=== PATIENT | female | born 1960 | race Caucasian/White ===

== ENCOUNTER 2017-08-18 00:34 | Day surgery (SDC) | payer OTHER ==
[~2017-08-18] VITALS: Ht 167.6 cm; Wt 84.8 kg
[~2017-08-18 00:34] MED LIST: ACE325 PO; CA C1TAB85 PO; CHOL200021 PO; CYCL10TA29 PO; DIPH-740 PO; DOC100 PO; DOCO1CAP17 PO; ESTR50GE2 TP; FES4PT PO; GINK120C PO; HYDR12.561 PO; LISI-362 PO; LISI20TA29 PO; METR55GE TP; MINE5OIN; MULT1CAP59 PO; MULT1TAB54 PO; OMEG-11 PO; OXYC-869 PO; PANT40TA65 PO; PER PO; PHENA200 PO; PRA20 PO; PSEU60TA80 PO; ROS10 PO; ROSU40TA18 PO; TETR15DR9 OP; [UNRECOGNIZED DRUG - OTHER] OP; [UNRECOGNIZED DRUG - OTHER] OP; immodium PO
[2017-08-18] MEDS ORDERED: LIDOCAINE MPF 1% 5 ML VIAL ONE (06:48)
[2017-08-18] MEDS ORDERED: PROPOFOL EMUL(*) 10MG/ML 20 ML 60 ML ONE (06:48)
--- NOTE | 2017-08-18 07:28 | Short(Outpt) Discharge Summary ---
Discharge Summary Reason for Hosp/Final Diag: (1) Rectal bleeding Hospital Course & Plan: sigmoid diverticulosis Departure Discharge to: Home Discharge Instructions Home Meds Active Scripts Oxycodone Hcl/Acetaminophen (PERCOCET 7.5-325 MG TABLET) 1 Each Tablet, 1 EACH PO Q4-6H, #20 Prov:ROXANN CAZARES DO 06/13/15 Reported Medications Cyclobenzaprine Hcl (CYCLOBENZAPRINE HCL) 10 Mg Tablet, 0.5 TAB PO HS Y for MUSCLE SPASMS, #9 TAB 08/16/17 [Xiaxue Eye Gtts] No Conflict Check, 1 DROP OP BID 08/16/17 [Paveo Eye Gtts] No Conflict Check, 1 DROP OP BID 08/16/17 Lisinopril (LISINOPRIL) 20 Mg Tablet, 20 MG PO QDAY, TAB 08/16/17 Rosuvastatin Calcium (CRESTOR) 40 Mg Tablet, 40 MG PO QDAY 08/16/17 Mineral Oil/Petrolatum,White (Retaine Pm Eye Ointment) 5 Gm Oint...g. 06/13/15 Metronidazole (METROGEL) 55 Gm Gel.w.pump, 1 ULISES TP DAILY 03/04/15 Cholecalciferol (Vitamin D3) (VITAMIN D) 2,000 Unit Capsule, 2000 UNIT PO BID, CAPSULE 03/04/15 Docosahexanoic Acid/Epa (FISH OIL CONCENTRATE SOFTGEL) 1 Each Capsule, 1 EACH PO BID, CAPSULE 03/04/15 Multivitamin (MULTI-VITAMIN DAILY) 1 Each Tablet, 1 EACH PO DAILY 03/04/15 Discontinued Reported Medications Lisinopril (LISINOPRIL) 10 Mg Tablet, 10 MG PO QDAY 06/13/15 Estradiol (ESTROGEL) 50 Gm Gel..extension service specialist in charge, 1 ULISES TP TWICE WEEKLY 03/04/15 Ginkgo Biloba Extract (GINKGO BILOBA) 120 Mg Capsule, PO DAILY Y for SEE COMMENT , CAPSULE 03/04/15 Rosuvastatin Calcium (CRESTOR) 10 Mg Tab, PO QDAY, TAB 03/04/15 Discontinued Scripts Cyclobenzaprine Hcl (CYCLOBENZAPRINE HCL) 10 Mg Tablet, 10 MG PO TID, #20 TAB TAKE 1 TABLET BY MOUTH THREE TIMES A DAY Prov:ROXANN CAZARES DO 06/13/15 Diet: High Fiber Activity: As Tolerated GOPI JAMES MD Aug 18, 2017 07:28
--- NOTE | 2017-08-18 07:28 | Post Operative Progress Note ---
Post Operative Progress Note Date: Aug 18, 2017 Time: 09:19 Surgeon: марина Anesthesia: dr mendoza Pre-Op Diagnosis: rectal bleeding Post-Op Diagnosis: sigmoid diverticulosis Procedure(s): colonoscopy GOPI JAMES MD Aug 18, 2017 07:28
[2017-08-18 07:45] VITALS: BP 132/103
[2017-08-18] MEDS ORDERED: MIDAZOLAM 2 MG/2 ML VIAL IVP ONE (08:00)
[2017-08-18] MEDS ORDERED: LIDOCAINE/SOD BICARB 8.4% SYR ID ONE (08:00)
[2017-08-18] MEDS ORDERED: NORMOSOL R SOLN(*) 1000 ML BAG 1,000 ML IV PRN (08:00)
[2017-08-18 09:20] VITALS: BP 114/80
[2017-08-18 09:30] VITALS: BP 104/84
[2017-08-18 10:07] VITALS: BP_SYST 122; BP_SYST 126; BP_DIAS 80; BP_DIAS 81
--- NOTE | 2017-08-18 15:51 | OPERATIVE REPORT 1 ---
EVENT DATE: August 18, 2017 SURGEON: Abilio Marin MD ANESTHESIOLOGIST: Edgardo Rowan MD ANESTHESIA: Sedation. PREOPERATIVE DIAGNOSIS Rectal bleeding. POSTOPERATIVE DIAGNOSIS Sigmoid diverticulosis. PROCEDURE PERFORMED Colonoscopy. DESCRIPTION OF PROCEDURE The patient was placed in the left lateral decubitus position and given intravenous sedation. Perianal examination was unremarkable. No prolapsing, thrombosed hemorrhoids. No fissures. No fistulas. A flexible colonoscope was inserted and advanced to the cecum. She had a good bowel prep. She had some liquid stool. We were able to suction this out and get a good look. No abnormalities were noted in the cecum, right colon, transverse, or descending colon. Care was taken to look behind the haustral folds. In the sigmoid colon , she had multiple diverticula. No evidence of diverticulitis. No blood was noted. The rectum was normal. The scope was retroflexed, and that appeared to be normal. [facility]
== END 2017-08-18 10:25 | disposition home or self-care (01) ==
LOC: OR 00:34
PROVIDERS: ATTEND Surgery
DX: K57.30 Diverticulosis of large intestine without perforation or abscess without bleeding (principal)
CPT/HCPCS: 00811; 45378; J2001; J2704

== ENCOUNTER 2018-04-19 07:11 | Emergency (ER) | payer OTHER ==
[2018-04-19] MEDS ORDERED: KETOROLAC 60 MG/2 ML VIAL IM ONE (07:35)
[2018-04-19] MEDS ORDERED: diphenhydrAMINE 25 MG CAP PO ONE (07:35)
[2018-04-19] MEDS ORDERED: PROCHLORPERAZINE MAL 5 MG TAB PO ONE (07:35)
--- NOTE | 2018-04-19 07:40 | ER Report ---
History and Physical Time Seen By MD: 07:25 HPI/ROS CHIEF COMPLAINT: Headache HISTORY OF PRESENT ILLNESS: Patient is a 58-year-old female history of chronic conditions undiagnosed potential MS lupus chronic neck discomfort secondary to herniated disc with with radiculopathic changes in the left upper extremity chronic as I lower back joint issues comes in today with 4 days of a headache it happened initiated about 4 days ago on the back of her neck up to the top of her head describes his have a tension feeling with some sinus pressure patient states that the next couple days he did get below bit better on its own by taking her Flexeril her tramadol and her ibuprofen subsequently last night it got worse same position and the back of the head feels like squeezing or a tight sensation also describing some sinus pressure and tenderness around her sinus area no vision changes no hearing changes no focal neurological deficit no nuchal rigidity no fever chills or sweats no meningeal signs noted. Patient denies any nausea vomiting diarrhea fever or chills. Patient states this is not the worst headache of her life and she has had headaches in the past but not recently. Patient has no additional complaints this time. REVIEW OF SYSTEMS: Respiratory: No cough, no dyspnea. Cardiovascular: No chest pain, no palpitations. Gastrointestinal: No vomiting, no abdominal pain. Musculoskeletal: chronic back pain. Remainder of the 14 system rev: Yes Allergies: Coded Allergies: Sulfa (Sulfonamide Antibiotics) (Verified Allergy, Mild, 12/15/11) Tetanus Vaccines and Toxoid (Verified Allergy, Mild, 12/15/11) Uncoded Allergies: ERYTHROMYCIN (Allergy, Unknown, 03/05/15) Home Meds Reported Medications Tramadol Hcl (TRAMADOL HCL) 50 Mg Tablet, 50-100 MG PO Q4-6H, TAB 04/19/18 Olopatadine HCl (Pazeo) 2.5 Ml Drops, 1 DROP OU DAILY 04/19/18 Rosuvastatin Calcium (CRESTOR) 20 Mg Tablet, 20 MG PO QDAY 04/19/18 [areds 2] No Conflict Check, 2 TAB PO DAILY 04/19/18 Lisinopril (LISINOPRIL) 40 Mg Tablet, 40 MG PO QDAY, TAB 04/19/18 Cyclobenzaprine Hcl (CYCLOBENZAPRINE HCL) 10 Mg Tablet, 1 TAB PO HS PRN for MUSCLE SPASMS, #9 TAB 08/16/17 Metronidazole (METROGEL) 55 Gm Gel.w.pump, 1 ULISES TP DAILY 03/04/15 Cholecalciferol (Vitamin D3) (VITAMIN D) 2,000 Unit Capsule, 2000 UNIT PO BID, CAPSULE 03/04/15 Docosahexanoic Acid/Epa (FISH OIL CONCENTRATE SOFTGEL) 1 Each Capsule, 1 EACH PO BID, CAPSULE 03/04/15 Discontinued Reported Medications [Xiaxue Eye Gtts] No Conflict Check, 1 DROP OP BID 08/16/17 [Paveo Eye Gtts] No Conflict Check, 1 DROP OP BID 08/16/17 Lisinopril (LISINOPRIL) 20 Mg Tablet, 20 MG PO QDAY, TAB 08/16/17 Rosuvastatin Calcium (CRESTOR) 40 Mg Tablet, 40 MG PO QDAY 08/16/17 Mineral Oil/Petrolatum,White (Retaine Pm Eye Ointment) 5 Gm Oint...g. 06/13/15 Multivitamin (MULTI-VITAMIN DAILY) 1 Each Tablet, 1 EACH PO DAILY 03/04/15 Discontinued Scripts Oxycodone Hcl/Acetaminophen (PERCOCET 7.5-325 MG TABLET) 1 Each Tablet, 1 EACH PO Q4-6H, #20 Prov:ROXANN CAZARES DO 06/13/15 Reviewed Nurses Notes: Yes Old Medical Records Reviewed: Yes Hx Smoking: No Smoking Status: Never Smoker Hx Substance Use Disorder: No Hx Alcohol Use: Yes Constitutional Vital Sign - Last 24 Hours 04/19/18 07:17 Temp 99.2 Pulse 98 Resp 16 B/P (MAP) 171/95 Pulse Ox 94 O2 Delivery Room Air Physical Exam General Appearance: The patient is alert, has no immediate need for airway protection and no current signs of toxicity. [ ] Eyes: Pupils equal and round no injection. No pain with extraocular motor movement no meningeal signs Respiratory: Chest is non tender, lungs are clear to auscultation. Cardiac: regular rate and rhythm [ ] Gastrointestinal: Abdomen is soft and non tender, no masses, bowel sounds normal. Musculoskeletal: Normal [Neck is supple and non tender. Full range of motion without any meningeal signs full range of motion no radiculopathic numbness Extremities have full range of motion and are non tender. Skin: Facial rash chronic Neurologic no focal deficits cranial nerves II through XII intact Facial examination palpable tenderness percussive in the maxillary sinus region some of the superior sinus left greater than right DIFFERENTIAL DIAGNOSIS: After history and physical exam differential diagnosis was considered for sinusitis meningitis subarachnoid hemorrhage Medical Decision Making ED Course/Re-evaluation ED Course ED clinical course medical decision-making [age] female came in with sinus pressure and tenderness and headache has been intermittent for last couple of days CT scan of the head shows white and juarez matter changes consistent with probable MS or other inflammatory processes no sign of blood mass tumor lesion sinuses were negative most likely this is just a viral sinus infection which may precipitate a headache no nuchal rigidity no meningeal signs no obvious signs of subarachnoid this is not the worst headache of her life should not cause a thunderclap she has no neck stiffness no nuchal rigidity no focal neurological deficits noted. Patient to get medication does feel better I will not prescribe narcotics we'll advise her to take [id number] and follow-up with a neurologist as directed and of primary care Decision to Disposition Date: Apr 19, 2018 Decision to Disposition Time: 09:10 Depart Departure Latest Vital Signs Vital Signs Date Time Temp Pulse Resp B/P (MAP) Pulse Ox O2 Delivery O2 Flow Rate FiO2 04/19/18 07:17 99.2 98 16 171/95 94 Room Air Impression: Primary Impression: Headache Condition: Stable Disposition: HOME OR SELF-CARE Referrals: KORIN RENDON (PCP) Patient Instructions: Acute Headache (DC) ABIGAIL HERNANDEZ MD Apr 19, 2018 07:40
[2018-04-19] MEDS ORDERED: LISI-374 PO (07:44)
[2018-04-19] MEDS ORDERED: TRAM-420 PO (07:44)
[2018-04-19] MEDS ORDERED: areds 2 PO (07:44)
[2018-04-19] MEDS ORDERED: OLOP2.5D4 OU (07:44)
[2018-04-19] MEDS ORDERED: ROSU20TA23 PO (07:44)
[2018-04-19 09:13] VITALS: BP 131/80
--- NOTE | 2018-04-19 09:13 | RADIOLOGY IMAGING REPORT ---
FACILITY: [facility] - [place] PATIENT NAME: Salma Mayo : 1960 MR: [id number] V: [id number] EXAM DATE: ORDERING PHYSICIAN: ABIGAIL HERNANDEZ TECHNOLOGIST: Location: [facility] Patient: Salma Mayo : 1960 Visit/Account:[id number] Date of Sevice: 04/19/[address] scan without contrast, and paranasal sinus CT scan without contrast. HISTORY: Headache, dizziness. COMPARISON: Brain MRI scan 05/31/2012. 3 mm thick and 0.[address] images were obtained of the brain. [address] images were obtained of the paranasal sinuses. Coronal and sagittal computer reconstructions were obtained of the brain and paranasal sinuses. No intravenous contrast. One of the following dose optimization techniques was utilized in the performance of this exam: Automated exposure control; adjustment of t he mA and/or kV according to the patient's size; or use of an iterative reconstruction technique. S pecific details can be referenced in the facility's radiology CT exam operational policy. FINDINGS: Cerebral, cerebellar, and brainstem volumes are normal for age. The ventricular system is normal in s ize and midline in position. No mass, hemorrhage, or acute stroke are identified. No abnormal extra a xial fluid collections. The calvarium is intact. Patchy areas of decreased attenuation are present i n the centrum semiovale bilaterally. A small calcification is present along the lateral aspect of th e posterior portion of the left lateral ventricular body. The base of the brain is slightly obscured by bony artifacts. Antral windows are present in the maxillary sinuses bilaterally. The frontal, ethmoid, maxillary, an d sphenoid sinuses are otherwise unremarkable bilaterally. No mucosal thickening or air-fluid levels . The middle nasal turbinates are partially aerated bilaterally. The mastoids and middle ears are a erated bilaterally. IMPRESSION: Bilateral cerebral white matter disease suspicious for multiple sclerosis or chronic ischemic [place]. Negative for acute intracranial hemorrhage. Bilateral maxillary sinus antral windows. Bilateral conchae bullosa. Otherwise negative paranasal sinuses. Results were discussed with ABIGAIL HERNANDEZ at 04/19/2018 9:08 AM. Report Dictated By: Erasmo Salcedo MD at 04/19/2018 8:50 AM Report E-Signed By: Erasmo Salcedo MD at 04/19/2018 9:09 AM NICN:BRADLEY
--- NOTE | 2018-04-19 09:13 | RADIOLOGY IMAGING REPORT ---
FACILITY: [facility] - [place] PATIENT NAME: Salma Mayo : 1960 MR: [id number] V: [id number] EXAM DATE: ORDERING PHYSICIAN: ABIGAIL HERNANDEZ TECHNOLOGIST: Location: [facility] [place] Patient: Salma Mayo : 1960 Visit/Account:[id number] Date of Sevice: 04/19/[address] scan without contrast, and paranasal sinus CT scan without contrast. HISTORY: Headache, dizziness. COMPARISON: Brain MRI scan 05/31/2012. 3 mm thick and 0.[address] images were obtained of the brain. [address] images were obtained of the paranasal sinuses. Coronal and sagittal computer reconstructions were obtained of the brain and paranasal sinuses. No intravenous contrast. One of the following dose optimization techniques was utilized in the performance of this exam: Automated exposure control; adjustment of t he mA and/or kV according to the patient's size; or use of an iterative reconstruction technique. S pecific details can be referenced in the facility's radiology CT exam operational policy. FINDINGS: Cerebral, cerebellar, and brainstem volumes are normal for age. The ventricular system is normal in s ize and midline in position. No mass, hemorrhage, or acute stroke are identified. No abnormal extra a xial fluid collections. The calvarium is intact. Patchy areas of decreased attenuation are present i n the centrum semiovale bilaterally. A small calcification is present along the lateral aspect of th e posterior portion of the left lateral ventricular body. The base of the brain is slightly obscured by bony artifacts. Antral windows are present in the maxillary sinuses bilaterally. The frontal, ethmoid, maxillary, an d sphenoid sinuses are otherwise unremarkable bilaterally. No mucosal thickening or air-fluid levels . The middle nasal turbinates are partially aerated bilaterally. The mastoids and middle ears are a erated bilaterally. IMPRESSION: Bilateral cerebral white matter disease suspicious for multiple sclerosis or chronic ischemic [place]. Negative for acute intracranial hemorrhage. Bilateral maxillary sinus antral windows. Bilateral conchae bullosa. Otherwise negative paranasal sinuses. Results were discussed with ABIGAIL HERNANDEZ at 04/19/2018 9:08 AM. Report Dictated By: Erasmo Salcedo MD at 04/19/2018 8:50 AM Report E-Signed By: Erasmo Salcedo MD at 04/19/2018 9:09 AM NICN:BRADLEY
== END 2018-04-19 09:21 | disposition home or self-care (01) ==
LOC: ER 07:36
DX: R51 Headache (principal)
CPT/HCPCS: 70450; 70486; 96372; 99284; J1885; Q0163; Q0164; 99283

== ENCOUNTER 2018-04-21 07:39 | Emergency (ER) | payer OTHER ==
[~2018-04-21 07:39] MED LIST changes: +LISI-374 PO; +OLOP2.5D4 OU; +ROSU20TA23 PO; +TRAM-420 PO; +areds 2 PO
--- NOTE | 2018-04-21 07:41 | ER Report ---
History and Physical Time Seen By MD: 07:41 HPI/ROS CHIEF COMPLAINT: Left-sided facial weakness, pressure to the left ear HISTORY OF PRESENT ILLNESS: She is a 58-year-old female who presents emergency department with complaint of left-sided facial numbness. She was seen 2 days ago in the emergency department for an unremitting headache that did improve with treatment in the emergency department but then reoccurred later that evening. Patient was later seen in urgent care and was found to have fever was diagnosed clinically with influenza and started on Tamiflu. Patient is on day 4 of 5 Tamiflu today. The headache is still persistent but does respond to prescribe pain medication. As morning the patient woke with left-sided the face drooping. Difficulty holding it in water and hard to shut her left eye. Patient states that the fever has resolved. 1st no new complaints at this time. REVIEW OF SYSTEMS: Respiratory: No cough, no dyspnea. Cardiovascular: No chest pain, no palpitations. Gastrointestinal: No vomiting, no abdominal pain. Musculoskeletal: No back pain. Allergies: Coded Allergies: Sulfa (Sulfonamide Antibiotics) (Verified Allergy, Mild, 12/15/11) Tetanus Vaccines and Toxoid (Verified Allergy, Mild, 12/15/11) Uncoded Allergies: ERYTHROMYCIN (Allergy, Unknown, 03/05/15) Home Meds Active Scripts Lanolin/Min Oil/Petrolat,Wht (AKWA TEARS OINTMENT) 3.5 Gm Oint...g., 3.5 GM OS QHS, #3.5 GM 0 Refills Apply at bedtime and tape eye shut until symptoms of Rowan's Palsy resolves Prov:CHLOE FISHER MD 04/21/18 Prednisone (PREDNISONE) 20 Mg Tablet, 60 MG PO QDAY, #15 TAB 0 Refills Prov:CHLOE FISHER MD 04/21/18 Reported Medications Tramadol Hcl (TRAMADOL HCL) 50 Mg Tablet, 50-100 MG PO Q4-6H, TAB 04/19/18 Olopatadine HCl (Pazeo) 2.5 Ml Drops, 1 DROP OU DAILY 04/19/18 Rosuvastatin Calcium (CRESTOR) 20 Mg Tablet, 20 MG PO QDAY 04/19/18 [areds 2] No Conflict Check, 2 TAB PO DAILY 04/19/18 Lisinopril (LISINOPRIL) 40 Mg Tablet, 40 MG PO QDAY, TAB 04/19/18 Cyclobenzaprine Hcl (CYCLOBENZAPRINE HCL) 10 Mg Tablet, 1 TAB PO HS PRN for MUSCLE SPASMS, #9 TAB 08/16/17 Metronidazole (METROGEL) 55 Gm Gel.w.pump, 1 ULISES TP DAILY 03/04/15 Cholecalciferol (Vitamin D3) (VITAMIN D) 2,000 Unit Capsule, 2000 UNIT PO BID, CAPSULE 03/04/15 Docosahexanoic Acid/Epa (FISH OIL CONCENTRATE SOFTGEL) 1 Each Capsule, 1 EACH PO BID, CAPSULE 03/04/15 Discontinued Reported Medications [Xiaxue Eye Gtts] No Conflict Check, 1 DROP OP BID 08/16/17 [Paveo Eye Gtts] No Conflict Check, 1 DROP OP BID 08/16/17 Lisinopril (LISINOPRIL) 20 Mg Tablet, 20 MG PO QDAY, TAB 08/16/17 Rosuvastatin Calcium (CRESTOR) 40 Mg Tablet, 40 MG PO QDAY 08/16/17 Mineral Oil/Petrolatum,White (Retaine Pm Eye Ointment) 5 Gm Oint...g. 06/13/15 Multivitamin (MULTI-VITAMIN DAILY) 1 Each Tablet, 1 EACH PO DAILY 03/04/15 Discontinued Scripts Oxycodone Hcl/Acetaminophen (PERCOCET 7.5-325 MG TABLET) 1 Each Tablet, 1 EACH PO Q4-6H, #20 Prov:ROXANN CAZARES 06/13/15 Past Medical/Surgical History Abnormal white matter demyelination on CT scans and prior MRIs. Patient has had an MS workup ordered we been negative. Patient is followed with Dr. Miner neurology. She has no definitive diagnosis. Patient was seen 2 days ago for headache which is still present. She was followed up later that evening in urgent care and was diagnosed clinically with influenza and started empirically on Tamiflu which she will be taking daily for of 5. Hx Smoking: No Smoking Status: Never Smoker Hx Substance Use Disorder: No Hx Alcohol Use: Yes Constitutional Vital Sign - Last 24 Hours 04/21/18 07:45 Temp 97.8 Pulse 99 Resp 20 B/P (MAP) 148/86 Pulse Ox 91 O2 Delivery Room Air Physical Exam General/Constitutional: Patient is awake, alert, nontoxic and in no acute respiratory distress. Head: Normocephalic and atraumatic. Eyes: Conjunctival clear, Pupils are equal and reactive to light. Extraocular muscles are intact and symmetrical. Sclera are clear and anicteric. Ears:External canals are clear. Tympanic membranes are clear with normal landmarks and light reflex. Nares: No rhinorrhea or bleeding. Turbinates are pink and moist. Oropharyngeal: Mucous membranes are moist. There is no pharyngeal erythema or exudate. There are no palatal petechiae. Uvula is midline and symmetrical. Neck: Supple, no adenopathy. Cardiovascular: Heart is regular rate and rhythm without audible murmurs, rubs or gallops. Pulmonary: Lungs are clear to auscultation bilaterally. There are no wheezes, rales, or rhonchi. Chest rise is symmetrical Abdomen: Soft, nontender, no guarding or peritoneal signs. Extremities: No gross deformities, No peripheral cyanosis. Able to move all 4 extremities. Neuro: Alert and oriented X3, patient has a complete left peripheral 7th nerve palsy. She has facial droop that includes the eyebrow. She has difficulty closing the left eyelid. And unable to hold air in her mouth without it leaking. Skin: No rashes, skin is warm dry and well perfused. Medical Decision Making ED Course/Re-evaluation ED Course 04/21/2018 8:28:[address] physical exam consistent with acute left-sided Rowan's palsy. We'll have patient start on prednisone 60 mg for the next 5 days as well as starting a IV V at nighttime with instructions to tape eye shut at night. Patient is instructed to follow-up with her primary care provider in a week to follow-up for the Rowan's palsy. Decision to Disposition Date: Apr 21, 2018 Decision to Disposition Time: 08:29 Depart Departure Latest Vital Signs Vital Signs Date Time Temp Pulse Resp B/P (MAP) Pulse Ox O2 Delivery O2 Flow Rate FiO2 04/21/18 07:45 97.8 99 20 148/86 91 Room Air Impression: Primary Impression: Rowan's palsy Condition: Condition Unchanged Disposition: HOME OR SELF-CARE Referrals: KORIN RENDON (PCP) 1 Week for reevaluation of bells palsy New Scripts Lanolin/Min Oil/Petrolat,Wht (AKWA TEARS OINTMENT) 3.5 Gm Oint...g. 3.5 GM OS QHS, #3.5 GM 0 Refills Apply at bedtime and tape eye shut until symptoms of Rowan's Palsy resolves Prov: CHLOE FISHER MD 04/21/18 Prednisone (PREDNISONE) 20 Mg Tablet 60 MG PO QDAY, #15 TAB 0 Refills Prov: CHLOE FISHER MD 04/21/18 Patient Instructions: Rowan Palsy (ED) Additional Instructions: Take all your prescribed medications as directed CHLOE FISHER MD Apr 21, 2018 07:41
[2018-04-21] MEDS ORDERED: PRED20TA6 PO (08:17)
[2018-04-21] MEDS ORDERED: [UNRECOGNIZED DRUG - CODE] OS (08:17)
[2018-04-21 08:26] VITALS: BP 144/90
== END 2018-04-21 08:28 | disposition home or self-care (01) ==
LOC: ER 07:42
DX: G51.0 Bell's palsy (principal)
CPT/HCPCS: 99281

== ENCOUNTER → 2018-09-21 | Outpatient (CLI) | payer OTHER ==
[~2018-09-21] MED LIST changes: +FLAX100041 PO; +NAPR220C12 PO; +PRED20TA6 PO; -ROS10 PO; +ROSU10TA PO; -ROSU20TA23 PO; +ROSU20TA24 PO; +[UNRECOGNIZED DRUG - CODE] OS
--- NOTE | 2018-09-21 16:18 | RADIOLOGY IMAGING REPORT ---
FACILITY: [facility] PATIENT NAME: Salma Mayo : 1960 MR: [id number] V: [id number] EXAM DATE: ORDERING PHYSICIAN: KORIN RENDON TECHNOLOGIST: Location: [facility] [place] Patient: Salma Mayo : 1960 Visit/Account:[id number] Date of Sevice: 09/21/2018 EXAMINATION: Lumbar spine, 3 views 09/21/2018 2:55 PM HISTORY: Lower back pain. Occasionally left leg pain also. COMPARISON: CT abdomen and pelvis 06/21/2017 FINDINGS: 5 nonrib-bearing lumbar vertebral levels. Lumbar vertebral body heights are well-preserve d. There is disc height loss and vacuum disc at L5-S1 in conjunction with 7 mm anterolisthesis L5 on S1. No well-defined L5 pars defect. No acute bony finding otherwise. Atherosclerotic vascular dick cifications. Right upper quadrant cholecystectomy clips. IMPRESSION: L5-S1 spondylosis including 7 mm L5-S1 anterolisthesis. This findings are progression fr om CT abdomen and pelvis 07/03/2015. Report Dictated By: Elmer Rivera MD at 09/21/2018 4:06 PM Report E-Signed By: Elmer Rivera MD at 09/21/2018 4:14 PM WSN:[email or web address]
== END ==
LOC: RAD 14:45
PROVIDERS: ATTEND Nurse Practitioner Family
DX: M47.817 Spondylosis without myelopathy or radiculopathy, lumbosacral region (principal); M43.16 Spondylolisthesis, lumbar region
CPT/HCPCS: 72100